=== PATIENT | male | born 2005 | race Hispanic/Latino ===

== ENCOUNTER 2023-06-16 09:14 | Emergency (ER) | payer SELFPAY ==
[2023-06-16] MEDS ORDERED: Lidocaine 1% PF 5 ML VIAL ONE (09:33)
== END 2023-06-16 11:33 | disposition home or self-care (01) ==
LOC: ERS 09:14
DX: L05.01 Pilonidal cyst with abscess (principal)
CPT/HCPCS: 10080; 87070; 87205

== ENCOUNTER 2023-06-20 11:59 | Emergency (ER) | payer SELFPAY | END 2023-06-20 14:16 | disposition home or self-care (01) | LOC: ERS 11:59 | DX: L05.01 Pilonidal cyst with abscess (principal) | CPT/HCPCS: 99282 ==